=== PATIENT | male | born 1955 | race Caucasian/White ===

== ENCOUNTER 2017-11-23 09:34 | Day surgery (SDC) | payer MEDICARE, OTHER ==
[2017-11-22 09:54] LABS: BASOPHILS # (AUTO) 0.1 X10'3 (0-0.2); BASOPHILS % (AUTO) 0.9 % (0-1); EOSINOPHILS # (AUTO) 0.3 X10'3 (0-0.9); EOSINOPHILS % (AUTO) 3.2 % (0-6); HEMOGLOBIN 11.5 g/dl (14.0-17.9); LYMPHOCYTES # (AUTO) 1.2 X10'3 (1.1-4.8); LYMPHOCYTES % (AUTO) 12.9 % (21-51); MEAN CORPUSCULAR HEMOGLOBIN 31.6 PG (27.0-31.0); MEAN CORPUSCULAR HGB CONC 34.9 % (33.0-36.5); MEAN CORPUSCULAR VOLUME 90.3 FL (78-98); MEAN PLATELET VOLUME 7.9 FL (7.4-10.4); MONOCYTES # (AUTO) 0.9 X10'3 (0-0.9); PLATELET COUNT 224 X10'3 (140-440); RED BLOOD COUNT 3.65 X10'6 (4.70-6.10); RED CELL DISTRIBUTION WIDTH 13.8 % (11.5-14.5); WHITE BLOOD COUNT 9.5 X10'3 (4.5-11.0)
[2017-11-22 10:03] LABS: ALBUMIN 3.6 G/DL (3.4-5.0); ANION GAP 13 (8-16); BLOOD UREA NITROGEN 75 MG/DL (7-18); CALCIUM 8.7 MG/DL (8.5-10.1); CHLORIDE 96 MMOL/L (99-107); CREATININE 9.37 MG/DL (0.60-1.10); GLUCOSE 213 MG/DL (70-104); POTASSIUM 4.3 MMOL/L (3.5-5.1); SODIUM 135 MMOL/L (135-145); TOTAL CARBON DIOXIDE 25.8 MMOL/L (24-32); eGFR 6 ML/MIN
[2017-11-22 10:05] LABS: PARTIAL THROMBOPLASTIN TIME 28 SECONDS (22-32)
[2017-11-23] VITALS (11 sets, daily range): BP systolic 85–139; BP diastolic 47–77
[~2017-11-23] VITALS: Ht 172.7 cm; Wt 56.7 kg
[2017-11-23] MEDS ORDERED: normal saline 1000ml 1,000 ML IV SCH (09:55)
[2017-11-23] MEDS ORDERED: diphenhydrAMINE 25mg capsule PO PRN (09:55)
[2017-11-23] MEDS ORDERED: LORazepam 0.5 MG tablet PO PRN (09:55)
[2017-11-23] MEDS ORDERED: CARV-50 PO (10:21)
[2017-11-23] MEDS ORDERED: ALBU8HFA PO (10:21)
[2017-11-23] MEDS ORDERED: FURO40TA4 PO (10:21)
[2017-11-23] MEDS ORDERED: MULT-1180 PO (10:21)
[2017-11-23] MEDS ORDERED: INSU100C10 SQ (10:21)
[2017-11-23] MEDS ORDERED: FLO0.4C PO (10:21)
[2017-11-23] MEDS ORDERED: LANTUS SQ (10:21)
[2017-11-23] MEDS ORDERED: SEVE800T8 PO (10:21)
[2017-11-23] MEDS ORDERED: AMIT-189 PO (10:21)
[2017-11-23] MEDS ORDERED: AMLO-94 PO (10:21)
[2017-11-23] MEDS ORDERED: ATOR40TA71 PO (10:21)
[2017-11-23] MEDS ORDERED: DIPH25CA6 PO (10:21)
[2017-11-23] MEDS ORDERED: DICY10CA88 PO (10:21)
[2017-11-23] MEDS ORDERED: albuterol sulfate PO (10:21)
[2017-11-23] MEDS ORDERED: ASPI-611 PO (10:21)
[2017-11-23] MEDS ORDERED: heparin 1,000 UNITS/NS 500ml 500 ML ONE (13:52)
[2017-11-23] MEDS ORDERED: LIDOcaine 1%/PF (10mg/ml) 5ml vial ONE (13:52)
[2017-11-23] MEDS ORDERED: iohexol 350MG/ML 100ml bottle IV ONE (13:52)
[2017-11-23] MEDS ORDERED: midazolam 2 mg/2 ml injection ONE (14:10)
[2017-11-23] MEDS ORDERED: fentaNYL/PF 50MCG/1 ML 2ML syringe ONE (14:17)
[2017-11-23] MEDS ORDERED: proCHLORperazine 10 MG/2 ml inj IV PRN (15:30)
[2017-11-23] MEDS ORDERED: nitroGLYCERIN 0.4mg SUBLingual tab SL PRN (15:30)
[2017-11-23] MEDS ORDERED: HYDROcodone/acetaminophen 5mg/325mg tablet PO PRN (15:30)
[2017-11-23] MEDS ORDERED: OXAZEpam 15mg capsule PO PRN (15:30)
[2017-11-23] MEDS ORDERED: ondansetron/PF 4mg/2ml inj IV PRN (15:30)
[2017-11-23] MEDS ORDERED: HYDROcodone/acetaminophen 10/325mg tab PO PRN (15:30)
== END 2017-11-23 18:00 | disposition home or self-care (01) ==
LOC: SSTAY O 09:34
PROVIDERS: ATTEND Internal Medicine Interventional Cardiology
DX: I25.118 Atherosclerotic heart disease of native coronary artery with other forms of angina pectoris (principal); I34.0 Nonrheumatic mitral (valve) insufficiency; E78.5 Hyperlipidemia, unspecified; I12.0 Hypertensive chronic kidney disease with stage 5 chronic kidney disease or end stage renal disease; E11.22 Type 2 diabetes mellitus with diabetic chronic kidney disease; N18.6 End stage renal disease; G47.30 Sleep apnea, unspecified; K21.9 Gastro-esophageal reflux disease without esophagitis; Z99.2 Dependence on renal dialysis; Z79.82 Long term (current) use of aspirin; Z79.4 Long term (current) use of insulin; Z98.890 Other specified postprocedural states; Z90.89 Acquired absence of other organs
CPT/HCPCS: 36415; 80048; 82948; 85025; 85610; 85730; 93458; 99152; A6257; C1769; J1644; J2001; J2250; J3010; J7030; Q0163; Q9967; 99153; A4620